=== PATIENT | male | born 1950 | race Caucasian/White ===

== ENCOUNTER 2016-05-20 13:54 | Emergency (ER) | payer OTHER ==
[~2016-05-20] VITALS: Ht 175.3 cm; Wt 117.9 kg
[~2016-05-20 13:54] MED LIST: ALBU18HF2 IH; ALBU18HF2 INH; AMLO10TA2 PO; ASPI-605 PO; ATOR40TA PO; CHOL20006 PO; ESOM40CA PO; MOME17SP; MOME17SP BNOSTRILS; MULT1TAB11 PO; MUPI22OI7; SULF1TAB48 PO; VALS1TAB2 PO
[2016-05-20] MEDS ORDERED: IV NS 0.9% 1,000 ML BAG IV ONE (14:30)
[2016-05-20] MEDS ORDERED: ONDANSETRON HCL/PF 4 MG/2 ML VIAL IVP ONE (14:30)
[2016-05-20 14:38] LABS: BASOPHILS % (AUTO) 0.3 % (0.0-2.0); DIFF TOTAL % 100 %; EOSINOPHILS # (AUTO) 0.1 /CMM (0.0-0.7); EOSINOPHILS % (AUTO) 0.6 % (0.0-6.0); HEMATOCRIT 45 % (39-51); HEMOGLOBIN 14.5 g/dL (13.5-17.5); LYMPHOCYTES # (AUTO) 1.1 /CMM (0.8-4.8); LYMPHOCYTES % (AUTO) 11.9 % (20.0-44.0); MEAN CORPUSCULAR HEMOGLOBIN 31 PG (26.0-33.0); MEAN CORPUSCULAR HGB CONC 33 g/dl (31.0-36.0); MEAN CORPUSCULAR VOLUME 94 fL (80-96); MONOCYTES # (AUTO) 0.6 /CMM (0.1-1.30); NEUTROPHILS # (AUTO) 7.9 /CMM (1.8-8.9); NEUTROPHILS % (AUTO) 81.2 % (43.0-81.0); PLATELET COUNT (AUTO) 188 /CMM (150-450); RED BLOOD CELL COUNT(AUTO) 4.72 MIL/uL (4.5-6.0); WHITE BLOOD COUNT (AUTO) 9.7 K/uL (4.3-11.0)
[2016-05-20] MEDS ORDERED: IV NS 0.9% 1,000 ML ONE (14:38)
[2016-05-20] MEDS ORDERED: IV SET PRIMARY 1 EA INFUS.SET MC ONE (14:38)
[2016-05-20] MEDS ORDERED: ONDANSETRON HCL/PF 4 MG/2 ML VIAL ONE (14:38)
[2016-05-20 15:15] LABS: CALCIUM, SERUM 8.5 mg/dL (8.5-10.1); CREATININE 0.9 mg/dL (0.6-1.3); POTASSIUM 4.2 mmol/L (3.5-5.1)
[2016-05-20 15:29] LABS: ALBUMIN 3.5 g/dL (3.4-5.0); BILIRUBIN,DIRECT 0.1 mg/dL (0.0-0.2); BILIRUBIN,TOTAL 0.4 mg/dL (0.2-1.0); INDIRECT BILIRUBIN 0.3 mg/dL (0.0-1.1); TOTAL PROTEIN, SERUM 7.2 g/dL (6.4-8.2)
[2016-05-20 16:27] VITALS: BP 133/71
== END 2016-05-20 16:28 | disposition home or self-care (01) ==
LOC: ER 13:57
DX: R11.2 Nausea with vomiting, unspecified (principal); E86.0 Dehydration; I10 Essential (primary) hypertension; J45.909 Unspecified asthma, uncomplicated; Z79.82 Long term (current) use of aspirin; Z95.1 Presence of aortocoronary bypass graft; Z88.8 Allergy status to other drugs, medicaments and biological substances
CPT/HCPCS: 36415; 80048; 80076; 83690; 85025; 96361; 96374; 99284; A4606; J2405; J7030; Z7610

== ENCOUNTER 2020-01-18 20:38 | Inpatient (IN) | payer MEDICARE, OTHER ==
[~2020-01-18] VITALS: Ht 175.3 cm; Wt 123.8 kg
[~2020-01-18 20:38] MED LIST changes: -AMLO10TA2 PO; +AMLO10TA7 PO
--- NOTE | 2020-01-18 21:12 | NUR ---
PATIENT CAME TO ER BED 9 C/O SHORTNESS OF BREATH. PATIENT HAS HX OF COPD, CHF, AND ASTHMA. PATIENT STATES THAT IT WAS DIFFICULT FOR HIM TO BREATHE. 75% ON RA. PLACED ON 3L OF N/C. AAOX4. BREATHING EVENLY AND UNLABORED ON ROOM AIR. EXPIRATORY WHEEZES HEARD UPON AUSCULTATION BILATERALLY POSTERIOR AND ANTERIORLY. CONNECTED TO MONITOR.
--- NOTE | 2020-01-18 21:21 | NUR ---
SOFTWARE SECURITY ARCHITECT AT BEDSIDE FOR BLOOD DRAW
[2020-01-18] MEDS ORDERED: FUROSEMIDE 40 MG/4 ML VIAL IV ONE (21:30)
[2020-01-18 21:31] LABS: BASOPHILS % (AUTO) 0.6 % (0.0-2.0); HEMATOCRIT 50 % (39-51); HEMOGLOBIN 15.8 g/dL (13.5-17.5); LYMPHOCYTES # (AUTO) 1.2 /CMM (0.8-4.8); LYMPHOCYTES % (AUTO) 17.9 % (20.0-44.0); MEAN CORPUSCULAR HGB CONC 32 g/dl (31.0-36.0); MEAN CORPUSCULAR VOLUME 97 fL (80-96); MONOCYTES # (AUTO) 0.8 /CMM (0.1-1.30); MONOCYTES % (AUTO) 11.5 % (2.0-12.0); NEUTROPHILS # (AUTO) 4.6 /CMM (1.8-8.9); PLATELET COUNT (AUTO) 187 /CMM (150-450); RED BLOOD CELL COUNT(AUTO) 5.11 MIL/uL (4.5-6.0); WHITE BLOOD COUNT (AUTO) 6.8 K/uL (4.3-11.0)
--- NOTE | 2020-01-18 21:33 | NUR ---
CALLED FOR COVID SWAB
--- NOTE | 2020-01-18 21:44 | NUR ---
US AT BEDSIDE
[2020-01-18] MEDS ORDERED: FUROSEMIDE 40 MG/4 ML VIAL ONE (21:45)
[2020-01-18 21:52] LABS: ALANINE AMINOTRANSFERASE 22 U/L (12-78); ALBUMIN 3.8 g/dL (3.4-5.0); ALKALINE PHOSPHATASE 97 U/L (46-116); ASPARTATE AMINOTRANSFERASE 20 U/L (15-37); B-TYPE NATRIURETIC PEPTIDE 107 PG/ML (0-125); BILIRUBIN,DIRECT 0.1 mg/dL (0.0-0.2); BILIRUBIN,TOTAL 0.4 mg/dL (0.2-1.0); CALCIUM, SERUM 9.3 mg/dL (8.5-10.1); CARBON DIOXIDE 33 mmol/L (21-32); CHLORIDE 102 mmol/L (98-107); CREATININE 0.9 mg/dL (0.6-1.3); GLUCOSE 79 mg/dL (74-106); POTASSIUM 3.8 mmol/L (3.5-5.1); SODIUM SERUM 142 mmol/L (136-145); TOTAL PROTEIN, SERUM 7.8 g/dL (6.4-8.2); UREA NITROGEN, BLOOD 16 mg/dL (7-18)
--- NOTE | 2020-01-18 21:52 | NUR ---
DR BALLESTEROS ON THE PHONE WITH DR CARLSON
--- NOTE | 2020-01-18 21:54 | NUR ---
COVID SWAB COLLECTED AND SENT TO THE LAB.
[2020-01-18] MEDS ORDERED: IV NS 0.9% 250 ML IV ONE (22:00)
[2020-01-18] MEDS ORDERED: IOHEXOL-350 100 ML VIAL IV ONE (22:00)
--- NOTE | 2020-01-18 22:25 | NUR ---
COVID RESULT: NEG
--- NOTE | 2020-01-18 22:26 | NUR ---
CALLED RADIOLOGY FOR CT
--- NOTE | 2020-01-18 22:53 | NUR ---
BACK FROM CT
[2020-01-18] MEDS ORDERED: PANTOPRAZOLE 40 MG VIAL ONE (23:00)
[2020-01-18] MEDS ORDERED: ONDANSETRON HCL/PF 4 MG/2 ML VIAL IVP ONE (23:00)
[2020-01-18] MEDS ORDERED: PANTOPRAZOLE 40 MG VIAL IV ONE (23:00)
[2020-01-18] MEDS ORDERED: ONDANSETRON HCL/PF 4 MG/2 ML VIAL ONE (23:00)
--- NOTE | 2020-01-18 23:22 | NUR ---
CALLED [facility] FOR TELE BED. 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
--- NOTE | 2020-01-18 23:24 | NUR ---
TELE BED 327-2
--- NOTE | 2020-01-18 23:34 | NUR ---
REPORT GIVEN TO ALAYNA SAUNDERS FOR C[facility].
--- NOTE | 2020-01-18 23:35 | NUR ---
PT WILL GO TO 310-2
--- NOTE | 2020-01-18 23:48 | NUR ---
PATIENT TAKEN UP TO ASSIGNED ROOM.
[2020-01-18 23:50] VITALS: BP 114/68
[2020-01-19] VITALS: BP 114/60
[2020-01-19] MEDS ORDERED: ONDANSETRON HCL/PF 4 MG/2 ML VIAL IVP PRN
[2020-01-19] MEDS ORDERED: HYDROCODONE/APAP 5/325MG TABLET PO PRN
[2020-01-19] MEDS ORDERED: ACETAMINOPHEN 325 MG TABLET PO PRN
--- NOTE | 2020-01-19 | NUR ---
ADMISSION NOTE PT ADMITTED FOR CHF EXACERBATION UNDER DR. CARLSON. NEW ORDERS RECIEVED. PT IN BED TELE MONITOR APPLIED. PT SR AT 95. PT AXOX4 AMBULATORY WITH STEADY GAIT. ON 2LNC PT HAS DRY COUGH. PT DENIES SOB AT THIS TIME. PT ORIENTED TO ROOM. CALL LIGHT PLACED WITHIN REACH. VERBALIZED UNDERSTANDING TO CALL FOR ASSISTANCE NEEDED. REQUEST. MADE FOR PATIENTS LIVING WILL. STATES HE WILL ASK HIS TO DROP OFF COPY IN AM. WILL CONT TO MONITOR. ADMISSION ASSESSMENT PERFORMED.
[2020-01-19] MEDS: methylPREDNISolone SOD SUCC 40 MG/ML VIAL IV SCH ×4 (01:17→21:22)
[2020-01-19] MEDS: ZOLPIDEM TARTRATE 5 MG TABLET PO PRN ×2 (01:19→21:22)
[2020-01-19 04:00] VITALS: BP 115/59
[2020-01-19 06:27] LABS: BASOPHILS % (AUTO) 0.3 % (0.0-2.0); EOSINOPHILS % (AUTO) 0.1 % (0.0-6.0); HEMATOCRIT 51 % (39-51); HEMOGLOBIN 16.1 g/dL (13.5-17.5); LYMPHOCYTES # (AUTO) 0.4 /CMM (0.8-4.8); LYMPHOCYTES % (AUTO) 5.4 % (20.0-44.0); MEAN CORPUSCULAR HGB CONC 32 g/dl (31.0-36.0); MEAN CORPUSCULAR VOLUME 99 fL (80-96); MONOCYTES # (AUTO) 0.1 /CMM (0.1-1.30); MONOCYTES % (AUTO) 1.1 % (2.0-12.0); NEUTROPHILS # (AUTO) 7.3 /CMM (1.8-8.9); NEUTROPHILS % (AUTO) 93.1 % (43.0-81.0); PLATELET COUNT (AUTO) 173 /CMM (150-450); RED BLOOD CELL COUNT(AUTO) 5.12 MIL/uL (4.5-6.0); WHITE BLOOD COUNT (AUTO) 7.9 K/uL (4.3-11.0)
[2020-01-19 06:52] LABS: ALANINE AMINOTRANSFERASE 19 U/L (12-78); ALBUMIN 3.7 g/dL (3.4-5.0); ALKALINE PHOSPHATASE 95 U/L (46-116); ASPARTATE AMINOTRANSFERASE 18 U/L (15-37); BILIRUBIN,TOTAL 0.4 mg/dL (0.2-1.0); CALCIUM, SERUM 8.9 mg/dL (8.5-10.1); CARBON DIOXIDE 32 mmol/L (21-32); CHLORIDE 101 mmol/L (98-107); GLUCOSE 154 mg/dL (74-106); MAGNESIUM 2.2 mg/dL (1.8-2.4); PHOSPHORUS 5.1 mg/dL (2.5-4.9); POTASSIUM 4.7 mmol/L (3.5-5.1); SODIUM SERUM 139 mmol/L (136-145); TOTAL PROTEIN, SERUM 7.9 g/dL (6.4-8.2); UREA NITROGEN, BLOOD 18 mg/dL (7-18)
[2020-01-19 06:55] LABS: CHOLESTEROL 161 mg/dL (<200); HDL CHOLESTEROL 76 mg/dL (40-60); LDL 77 mg/dL (0-99); THYROID STIMULATING HORMONE 3.039 uIU/mL (0.358-3.74); TRIGLYCERIDES 30 mg/dL (30-150)
--- NOTE | 2020-01-19 07:10 | NUR ---
DR. MCKEON PSYCHOLOGIST CHIEF IN TO SEE THE PATIENT.
--- NOTE | 2020-01-19 07:30 | NUR ---
0730 Opening Noted: Report received from night RN. Patient alert, awake and oriented x4. Able to make needs known. Patient seen by MD. No s/s of distress or discomfort noted, no c/o pain. Had breakfast tolerated well. VS WNL. 09:00 Due medications received, tolerated well. Patient assisted with ADLs, kept clean and dry. Linens changed. Patient able to turn and reposition himself. Patient teaching done. Fall precautions observed. Call light within reach.
[2020-01-19] MEDS: PANTOPRAZOLE 40 MG TABLET.DR PO SCH (07:53)
[2020-01-19 08:00] VITALS: BP 111/60
[2020-01-19] MEDS: DOCUSATE SODIUM 100 MG CAPSULE PO SCH ×2 (08:27→16:14)
[2020-01-19] MEDS: ASPIRIN EC 81 MG TABLET.DR PO SCH (08:28)
[2020-01-19] MEDS: MULTIVIT W/MINERALS 1 TAB TABLET PO SCH (08:28)
[2020-01-19] MEDS: CHOLECALCIFEROL 1,000 UNIT TABLET (VIT D3) PO SCH ×2 (08:28→16:14)
[2020-01-19] MEDS: FUROSEMIDE 20 MG/2 ML VIAL IV SCH (08:29)
[2020-01-19] MEDS: AMLODIPINE BESYLATE 10 MG TABLET PO SCH (08:32)
[2020-01-19] MEDS: FLUTICASONE/VILANTEROL 1 EACH BLST.W.DEV IH SCH (08:36)
[2020-01-19] MEDS ORDERED: FUROSEMIDE 20 MG/2 ML VIAL IV SCH (09:00)
[2020-01-19] MEDS: ENOXAPARIN SODIUM 40 MG/0.4 ML DISP.SYRIN SQ SCH (12:20)
[2020-01-19 16:00] VITALS: BP 110/56
--- NOTE | 2020-01-19 18:22 | NUR ---
Closing Notes: Patient in bed alert, awake, having dinner, tolerating well. No c/o pain , no SOB, no s/s of distress or discomfort. Assisted with ADLs. Tolerated treatment and care well. Patient continuously monitored. Needs anticipated and attended. Call light within easy reach. VS WNL.
[2020-01-19 20:00] VITALS: BP 108/57
[2020-01-19] MEDS ORDERED: ATORVASTATIN 40 MG TABLET PO SCH (22:00)
--- NOTE | 2020-01-19 22:00 | NUR ---
REFUSED WEARING SCD; STATES "I CANT SLEEP WITH THESE THINGS THEY ARE BUGGING ME. I WANT TO TAKE THEM OFF" SCD'S REMOVED.
[2020-01-20] VITALS: BP 113/62
--- NOTE | 2020-01-20 02:05 | NUR ---
RA SATURATION OF OXYGEN AT 82%; NC REAPPLIED AT 3LNC PT SATURATION NOW AT 90%
[2020-01-20 04:00] VITALS: BP 111/60
[2020-01-20] MEDS: methylPREDNISolone SOD SUCC 40 MG/ML VIAL IV SCH (05:21)
[2020-01-20 06:22] LABS: HEMATOCRIT 48 % (39-51); HEMOGLOBIN 15.3 g/dL (13.5-17.5); LYMPHOCYTES # (AUTO) 0.5 /CMM (0.8-4.8); LYMPHOCYTES % (AUTO) 5.7 % (20.0-44.0); MEAN CORPUSCULAR HGB CONC 32 g/dl (31.0-36.0); MEAN CORPUSCULAR VOLUME 98 fL (80-96); MONOCYTES # (AUTO) 0.5 /CMM (0.1-1.30); MONOCYTES % (AUTO) 6.4 % (2.0-12.0); NEUTROPHILS # (AUTO) 7.5 /CMM (1.8-8.9); NEUTROPHILS % (AUTO) 87.9 % (43.0-81.0); PLATELET COUNT (AUTO) 166 /CMM (150-450); RED BLOOD CELL COUNT(AUTO) 4.89 MIL/uL (4.5-6.0); WHITE BLOOD COUNT (AUTO) 8.5 K/uL (4.3-11.0)
[2020-01-20 06:34] LABS: CALCIUM, SERUM 8.6 mg/dL (8.5-10.1); CREATININE 0.8 mg/dL (0.6-1.3); MAGNESIUM 2.3 mg/dL (1.8-2.4); PHOSPHORUS 4.1 mg/dL (2.5-4.9); POTASSIUM 4.5 mmol/L (3.5-5.1)
--- NOTE | 2020-01-20 07:19 | NUR ---
Closing Notes: Patient in bed alert, seen with eyes closed. in no apparent resp distress breathing even and unlabored on 3lnc. Patient continuously monitored tele shows sr in 80's.Call light within easy reach. will cont to monitor.
--- NOTE | 2020-01-20 07:30 | NUR ---
MS/RN OPENING NOTE PATIENT RECEIVED FROM SOCIAL MEDIA ASSISTANT PATIENT IS A/O X4 LAYING IN BED. PATIENT VS WITHIN NORMAL RANGE. PATIENT IS ON 3L/MIN OF OXYGEN VIA NASAL CANNULA TOLERATING WELL. PATIENT IN NO ACUTE DISTRESS NOTED. PATIENT VERBALIZES 0/[address] ME[address] IN PLACE, BED IN LOWEST POSITION/LOCKED, CALL LIGHT WITHIN REACH. WILL CONTINUE TO MONITOR AND ENSURE SAFETY.
[2020-01-20 08:00] VITALS: BP 123/75
[2020-01-20] MEDS: ASPIRIN EC 81 MG TABLET.DR PO SCH (08:19)
[2020-01-20] MEDS: MULTIVIT W/MINERALS 1 TAB TABLET PO SCH (08:19)
[2020-01-20] MEDS: PANTOPRAZOLE 40 MG TABLET.DR PO SCH (08:19)
[2020-01-20] MEDS: CHOLECALCIFEROL 1,000 UNIT TABLET (VIT D3) PO SCH (08:19)
[2020-01-20] MEDS: DOCUSATE SODIUM 100 MG CAPSULE PO SCH (08:19)
[2020-01-20] MEDS: FUROSEMIDE 20 MG/2 ML VIAL IV SCH (08:20)
[2020-01-20] MEDS: ENOXAPARIN SODIUM 40 MG/0.4 ML DISP.SYRIN SQ SCH (08:21)
[2020-01-20] MEDS: FLUTICASONE/VILANTEROL 1 EACH BLST.W.DEV IH SCH (08:22)
[2020-01-20 08:26] VITALS: BP 123/75
[2020-01-20] MEDS: AMLODIPINE BESYLATE 10 MG TABLET PO SCH (08:26)
[2020-01-20] MEDS ORDERED: PRED50TA PO (09:47)
--- NOTE | 2020-01-20 12:50 | NUR ---
MS/RN DISCHARGED PATIENT WAS DISCHARGED TO HOME IN STABLE CONDITION. ALL PERSONAL BELONGINGS WITH PATIENT AND SIGNED FOR IN BELONGINGS LIST. HEPLOCK REMOVED, PRESSURE DRESSING APPLIED. NAME BAND REMOVED. EDUCATED PATIENT ON ON ALL DISCHARGE TEACHINGS. PATIENT STATED UNDERSTANDING. ALL DISHCARGE MEDICATION EXPLAINED TO PATIENT, INFORMED OF POSSIBLE SIDE EFFECT. ONE NEW MEDICATION PRESCRIBED PREDNISONE. EXPLAINED WHAT MEDICATION WAS FOR, POSSIBLE SIDE EFFECT, PATIENT STATED UNDERSTANDING. PATIENT WAS PICKED UP BY IN PERSONAL PRIVATE CAR. PATIENT LEFT FLOOR IN STABLE CONDITION.
== END 2020-01-20 13:04 | disposition home or self-care (01) | DRG 189 ==
LOC: ER 20:38 → TELE 23:25
PROVIDERS: ADMIT Internal Medicine; ATTEND Internal Medicine
DX: J96.01 Acute respiratory failure with hypoxia (principal); J44.1 Chronic obstructive pulmonary disease with (acute) exacerbation; J45.901 Unspecified asthma with (acute) exacerbation; J98.11 Atelectasis; D68.69 Other thrombophilia; Z68.41 Body mass index [BMI] 40.0-44.9, adult; J90 Pleural effusion, not elsewhere classified; J44.0 Chronic obstructive pulmonary disease with (acute) lower respiratory infection; J20.9 Acute bronchitis, unspecified; D75.89 Other specified diseases of blood and blood-forming organs; E78.5 Hyperlipidemia, unspecified; E66.01 Morbid (severe) obesity due to excess calories; Z79.82 Long term (current) use of aspirin; Z86.74 Personal history of sudden cardiac arrest; Z86.718 Personal history of other venous thrombosis and embolism; Z90.81 Acquired absence of spleen; Z95.1 Presence of aortocoronary bypass graft; Z72.89 Other problems related to lifestyle; I10 Essential (primary) hypertension
CPT/HCPCS: 36415; 71045-TC; 80048-TC; 80053-TC; 80061-TC; 80076-TC; 83735-TC; 83880; 84100-TC; 84443-TC; 84484-TC; 85025-TC; 85730-TC; 87081-TC; 93307-TC; 93970-TC; C9113; C9803; G0378; J1650; J1940; J2405; J2920; J7050; Q9967